=== PATIENT | male | born 1990 | race Caucasian/White ===

== ENCOUNTER 2025-02-12 13:27 | Emergency (ER) | payer BC, SELFPAY ==
[2025-02-12 13:46] VITALS: BP 140/89; PULSE 79; RESP 16; TEMP 36.6; O2SAT 99
--- NOTE | 2025-02-12 14:26 | ED_ITS ---
HPI - Headache General Chief Complaint: Headache Stated Complaint: Headache/Neck Pain Time Seen by Provider: 02/12/25 13:57 Source: patient and RN notes reviewed Mode of arrival: ambulatory Limitations: no limitations History of Present Illness HPI Narrative: Patient presents today complaining of a posterior headache that has been dull and constant x1 week, worse x3-4 days. He has tried 1 tablet of tylenol and 1 of motrin without improvement of symptoms and currently rates his pain 3/10. Denies any additional symptoms to include dizziness/lightheadedness, nausea/vomting, photophobia, recent illness, vision changes. This is not the worst headache of his life. No history of migraines or chronic headaches. States he has been under a large amount of stress at work over the last 2 weeks. Related Data Allergies Allergy/AdvReac Type Severity Reaction Status Date / Time No Known Allergies Allergy Verified 02/12/25 14:00 [facility], [facility] Comments At time of signature, I have reviewed and agree with nursing past medical, surgical, social and family history unless otherwise noted. Please see nursing chart for further information. There is no relevant family history pertinent to the presenting complaint Exam Narrative: GENERAL: Well-appearing, well-nourished, and in no acute distress. HEAD: Normocephalic, atraumatic. EYES: EOMI. PERRL. No redness or drainage. Conjunctivae normal. Lids and lashes normal. Wears glasses. ENT: Mucous membranes pink and moist. Nares clear. No rhinorrhea. TMs normal bilaterally. Throat normal. Uvula midline. NECK: Supple. No lymphadenopathy. CHEST: No respiratory distress. Clear to auscultation. HEART: Regular rate and rhythm. No murmur appreciated. Normal peripheral pulses. MUSCULOSKELETAL: No bony tenderness of the spine. +bilateral cervical paraspinal muscle tenderness that extends to the bilateral occiput and downward to the bilateral trapezius. Mild pain is elicited in the cervical paraspinal musculature with AROM of the neck in all directions. AROM is full. EXTREMITIES: Normal range of motion. No edema. SKIN: Warm, dry, no rash. Capillary refill normal. Normal skin turgor. NEURO: No focal deficits. Alert and oriented x3. Gait steady. PSYCH: Normal affect. No signs of depression or anxiety. Course Course Level of Care: Express Care Visit Vital Signs Vital signs: Vital Signs Temperature 97.9 F 02/12/25 13:46 Pulse Rate 79 02/12/25 13:46 Respiratory Rate 16 02/12/25 13:46 Blood Pressure 140/89 02/12/25 13:46 Pulse Oximetry 99 02/12/25 13:46 Temperature 97.9 F 02/12/25 13:46 Pulse Rate 79 02/12/25 13:46 Respiratory Rate 16 02/12/25 13:46 Blood Pressure 140/89 02/12/25 13:46 Pulse Oximetry 99 02/12/25 13:46 Reviewed MDM - Headache MDM Narrative Medical decision making narrative: 34yo male patient presents today with a 1 week history of posterior headache with worsened symptoms x3-4 days. Denies any additional symptoms. Exam shows tenderness to the bilateral cervical paraspinal muscles extending to the occiput and trapezius and some mild pain in same with AROM of the neck. These findings along with patient's increased stress at work makes tension headache most likely. He has no neurological symptoms or red flag symptoms that would warrant an ER transfer at this time for further evaluation. No worst headache ever. VSS. Recommend Flexeril and diclofenac to help with symptoms along with heating pad. Patient agrees with plan. Anticipatory guidance given. ED precautions given. Differential Diagnosis Differential diagnosis: Likely migraine, tension headache and other (cervical strain) Critical Care Time Critical Care Time Critical Care Time: No Discharge Plan Discharge Clinical Impression: Acute tension headache Qualifiers: Intractability: not intractable Qualified Code(s): G44.209 - Tension-type headache, unspecified, not intractable Patient Disposition: Home Condition: Stable Instructions: Tension Headache (ED) Additional Instructions: Please take the diclofenac and Flexeril as directed for your headache. Follow- up with your PCP in 1 week if symptoms are not improving, or sooner if symptoms worsen. Your blood pressure was elevated above 120/80 today at Urgent Care. This puts you above the threshold for follow up. Please schedule a followup visit with your personal physician as soon as possible, for further evaluation and treatment. Even blood pressure exceeding 120/80 may indicate pre-hypertension. Patient Language: Green[place]ic Prescriptions: New cyclobenzaprine 10 mg tablet 10 mg PO TID PRN (Reason: muscle spasm) Qty: 20 0RF diclofenac sodium 50 mg tablet,delayed release (DR/EC) 50 mg PO BID Qty: 20 0RF Follow-up/Referrals: Hernesto,Austin Lennon MD [Primary Care Provider] - Time of Disposition: 14:13
== END 2025-02-12 14:14 | disposition home or self-care (01) ==
PROVIDERS: Emergency Provider Nurse Practitioner; PCP Family Medicine
DX: G44.209 Tension-type headache, unspecified, not intractable (principal)
CPT/HCPCS: 99203; G0463